=== PATIENT | male | born 1950 | race Caucasian/White ===

== ENCOUNTER → 2016-07-23 | Day surgery (SDC) | payer OTHER, MEDICARE ==
[2016-06-29 14:26] LABS: HEMATOCRIT 42.4 % (42-52); MEAN CELL VOLUME 91.6 fL (80-100); MEAN CORPUSCULAR HEMOGLOBIN 31.3 pg (25-34); MEAN CORPUSCULAR HGB CONC 34.2 g/dl (32-36); MEAN PLATELET VOLUME 10.4 fL (7.4-10.4); PLATELET COUNT 228 K/uL (130-400); RED BLOOD COUNT 4.63 M/uL (4.7-6.1); WHITE BLOOD COUNT 6.24 K/uL (4.8-10.8)
[2016-06-29 14:33] LABS: PROTHROMBIN TIME (PATIENT) 10.7 SECONDS (9.0-12.0)
[2016-06-29 14:36] LABS: BLOOD UREA NITROGEN 15 mg/dl (7-18); CARBON DIOXIDE 27 mmol/L (21-32); CHLORIDE 104 mmol/L (98-107); CREATININE 0.77 mg/dl (0.60-1.40); SODIUM 141 mmol/L (136-145)
[2016-07-09 13:53] VITALS: Ht 172.7 cm; Wt 69.1 kg
[~2016-07-23] VITALS: Ht 172.7 cm; Wt 69.1 kg
[~2016-07-23] MED LIST: ALBU1AER9 INH; ASCO-63 PO; ASPI81TA28 PO; ATROPINE SULFATE 0.1 MG/ML 5ML SYR IV PRN; B-COTAB18 PO; BUPIVACAINE 0.5 % 5 MG/1 ML MPF 30ML VIAL ONE; CALC-51 PO; CEFAZOLIN 1000MG/55 ML D5W IV SCH; DEXAMETHASONE SOD INJ 4 MG/ML VIAL ONE; EZET10TA41 PO; EpHEDrine SULFATE 50MG/5ML SYR ONE; FENTANYL CITRATE INJ 50 MCG/1 ML 2 ML VIAL IV PRN; FENTANYL CITRATE INJ 50 MCG/1 ML 2 ML VIAL ONE; FLAX100024 PO; GLYCOPYRROLATE INJ 0.2 MG/ML VIAL ONE; KETOROLAC TROMETHAMINE 15 MG/ML VIAL IV. PRN; LABETALOL HCL IV 5 MG/ML 20ML IV PRN; LACTATED RINGER'S 1000ML 1,000 ML IV SCH; LEVO100T PO; LIDOCAINE 2% 20 MG/ML 5ML SYR ONE; LIDOCAINE HCL 1% MPF 2 ML VIAL ONE; LIDOCAINE/EPINEPHRINE 1% INJ 50 ML VIAL ONE; LOSA1TAB PO; MIDAZOLAM HCL 1 MG/ML 2ML VIAL ONE; MoRPHine SULFATE 2 MG/ML CARP IV PRN; MoRPHine SULFATE 4 MG/ML 1 ML CARP\\VIAL IV PRN; NEOSTIGMINE METHYLSULFATE 5 MG/5 ML SYR ONE; NUTR1000 PO; ONDANSETRON INJ 2 MG/ML 2 ML VIAL IV PRN; ONDANSETRON INJ 2 MG/ML 2 ML VIAL ONE; OXYCODONE/ACETAMINOPHEN 5-325 TAB PO PRN; PROPOFOL IV EMULSION 10 MG/ML 20 ML VIAL IV ONE; ROPIVACAINE 0.5% 5 MG/ML 30 ML VIAL ONE; SELE200T2 PO; [UNRECOGNIZED DRUG - CODE] PO
--- NOTE | 2016-07-23 06:45 | History & Physical Bridge - [place] ---
H&P Re-Evaluation Bridge Note: I have examined the patient, reviewed the History & Physical and in the interval since the performance of the History & Physical I have noted the following changes of clinical significance: No changes noted
--- NOTE | 2016-07-23 09:38 | Discharge Instructions-SurgCtr ---
Discharge Instructions Visit Reason for Visit: Right Shoulder Rotator Cuff Teaer Discharge Discharge Diagnosis / Problem: Status post right Rotator Cuff Repair Discharge Goals Goal(s): Decrease discomfort, Improve function, Increase independence Medications Stopped Medications Name(s): ASA. STOPPED 9 DAYS AGO. Activity Recommendations Activity Limitations: per Instructions/Follow-up section Lifting Limitations: until after follow-up appointment Exercise/Sports Limitations: until after follow-up appointment May Resume Sexual Activity: when tolerated Shower/Bathe: may shower/bathe in 3 days Driving or Machine Use: no limitations Anesthesia . Post Anesthesia Instructions: If you have had General Anesthesia or IV Sedation: * Do not drive today. * Resume driving when surgeon permits. * Do not make important decisions or sign legal documents today. * Call surgeon for: 1. Temperature elevations greater than 101 degrees F. 2. Uncontrollable pain. 3. Excessive bleeding. 4. Persistent nausea and vomiting. 5. Medication intolerance (nausea, vomiting or rash). * For nausea and vomiting use only clear liquids such as: tea, soda, bouillon until nausea subsides, then gradually increase diet as tolerated. * If you have any concerns or questions, call your surgeon's office. If physician is unavailable and it is an emergency, call 911 or go to the nearest emergency room. . Instructions / Follow-Up Instructions / Follow-Up Dr. Liao in 10-15 days. PT in 2-3 days. Diet Recommendations Home Diet: resume previous diet Procedures Procedures Performed: Right Shoulder Arthroscopy, Biceps Tenodesis, Rotator Cuff Repair, Debridement, Exam Under Anesthesia Pending Studies Studies pending at discharge: no Medical Emergencies . Who to Call and When: Medical Emergencies: If at any time you feel your situation is an emergency, please call 911 immediately. . Non-Emergent Contact Non-Emergency issues call your: Surgeon Call Non-Emergent contact if: temperature is above 101.5, your pain is not controlled, wound has increased drainage, wound has increased redness . . "Provider Documentation" section prepared by Barrett Liao.
--- NOTE | 2016-07-23 09:45 | [facility] Operative Report ---
Operative Report Operative Date Jul 23, 2016. Pre-Operative Diagnosis Right shoulder rotator cuff tear Post-Operative Diagnosis Same + SLAP tear (type II), anterior and posterior labral fraying, Bursitis Procedure(s) Performed 1) Right Shoulder Arthroscopy Rotator Cuff Repair. 2) Arthroscopic Biceps Tenodesis. 3) Extensive Debridement. 4) Exam Under Anesthesia. Surgeon Dr. Liao Punch Machine Operator Surgeon(s) Dr. Trixie Farris & Porter Alarcon PA-C Estimated Blood Loss 4 mL Findings The Right shoulder was then examined under anesthesia and it exhibited: Forward flexion and abduction to 170; external rotation 100; internal rotation 80. There was no noted instability. Posterior and anterior translation was 1+ and they had no sulcus sign and was symmetric to their other side. The diagnostic arthroscopy commenced with the following findings: 1. The biceps anchor had a type II SLAP tear. 2. The anterior labrum showed a Megha complex with some fraying of the labrum at the 3:00 position, otherwise it was intact. 3. The inferior labrum was intact. 4. The inferior pouch showed no loose bodies. 5. The posterior labrum had fraying from the 7:[address] up to the superior aspect of the labrum, but it was well adhered to the glenoid. 6. The articular surface of the glenoid was normal. 7. The articular surface of humeral head was normal. 8. The long Head of the Biceps had some injection at the insertion on the superior labrum, but otherwise normal. 9. The Subscapularis tendon was normal. 10. The Supraspinatus tendon had a high-grade articular surface tear most anteriorly. After debriding the frayed aspect, there was a small full- thickness tear in the remaining attachment anteriorly was less than 10%. 11. The Infraspinatus and Teres Minor were intact. 12. The Subacromial space showed bursitis, no bony spur. Fluids (cc crystalloids) 1600 Specimens None Drains n/a Anesthesia GET + interscalene Nerve block Complication(s) None Disposition Recovery Room / PACU (Stable) Implants 1) 5.5 mm SwiveLock (Arthrex), Medial row. 2) 4.75 mm SwiveLock (Arthrex), Lateral row. 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 They have MRI and clinical findings suggestive of right supraspinatus rotator cuff tear and labral tears. After a lengthy discussion regarding their options of conservative versus operative management, they have elected to proceed with surgery. The risks of surgery were discussed and include but not limited to: Infection, bleeding, nerve damage, continued pain, progression of arthritis, stiffness, decreased level of activity, and deep vein thrombosis. The patient understood all of their options and the risks of surgery and would like to proceed. The informed consent was signed. Description of Procedure The patient was taken to the operating room and following administration of her interscalene nerve block and general anesthetic, a multidisciplinary time-out was performed identifying my initials on the right shoulder as the correct and operative limb. The patient was then placed in beach chair position with all of their bony prominences well-padded. They were then prepped and draped in the usual orthopedic sterile fashion. All of the bony landmarks were marked as well as the planned incisions. The planned incisions were injected with a 50:50 mixture of 0.5% Marcaine plain and 1% Lidocaine with Epinephrine for a total of 8 cc. Then using a spinal needle which was placed intra-articularly into the glenohumeral joint and insufflated to 35 cc and there was noted appropriate back flow, an additional 15 cc were placed. The standard posterior portal was made with an 11-blade. Trocar was introduced into the glenohumeral joint in the standard fashion. Using a spinal needle, the anterior portal was placed lateral to the coracoid under direct visualization between the Long Head of the Biceps and Subscapularis. A 7mm cannula was then placed. The intra-articular portion of shoulder was addressed first with debriding any fraying from the labrum (superiorly, anteriorly, and posteriorly) and the supraspinatus articular sided tear. The labrum was probed and found to be intact. After debriding the frayed articular sided supraspinatus tear, there is a small portion of full-thickness tear in the remaining anterior fibers were less than 10%. The arthroscope had also been removed from the posterior portal and placed anteriorly for better posterior visualization. Additional debridement of the posterior labrum was also performed again back to a stable rim. Due to the type II SLAP tear, it was felt best to perform a biceps tenodesis. A Sanjuanita cannula was placed through the subacromial space and the rotator cuff tear to allow the placement of a FiberLink through the long head of the biceps. The biceps was then released with a basket forceps. The released long head of the biceps portion from the superior labrum was further debrided with mechanical shaver. The arthroscope was then placed subacromially. There was bursitis noted. Once the bursitis was removed, the bursal side of the rotator cuff was visualized and a small crescent-shaped tear of the supraspinatus was noted. The footprint of the rotator cuff was prepared with a small bur creating a bleeding surface to allow for healing of the long head biceps and supraspinatus. A 5.5 mm SwiveLock was placed for the medial row, with the FiberLink from the biceps incorporated with care to ensure proper tensioning of the long head of the biceps. The FiberTapes were passed through the most anterior and posterior aspect of the supraspinatus separately, to be incorporated into the lateral row. The FiberWire were also passed in a horizontal fashion more centrally and medially to the FiberTapes. The FiberTapes were were placed in the lateral row anchor ( 4.75 mm Swivelock) in the standard fashion, with the arm slightly abducted. The FiberWires were passed out the lateral portal and tied together using a non- sliding arthroscopic knot, securing to the medial anchor, with alternating half hitch was performed to complete the repair, in the standard fashion. The humeral head was no longer visible. All of the instruments were removed. The portal sites were closed with 3-0 Prolene in a standard fashion. Xeroform was placed overtop followed by 4 x 4's, ABDs, and foam tape. The patient was placed in a sling. The sponge and needle counts were correct. POSTOPERATIVE INSTRUCTIONS: The patient will follow-up with physical therapy in two days. The patient will wear the abduction sling for 4 weeks. The patient will follow-up with me in 10 to 15 days. I attest to the content of the Intraoperative Record and any orders documented therein. Any exceptions are noted below.
--- NOTE | 2016-07-23 10:08 | [facility] Operative Report ---
Operative Report Operative Date Jul 23, 2016. Pre-Operative Diagnosis Right shoulder rotator cuff tear Post-Operative Diagnosis Same + SLAP tear (type II), anterior and posterior labral fraying, Bursitis Procedure(s) Performed 1) Right Shoulder Arthroscopy Rotator Cuff Repair. 2) Arthroscopic Biceps Tenodesis. 3) Extensive Debridement. 4) Exam Under Anesthesia. Surgeon Dr. Liao Stone Sawyer Surgeon(s) Dr. Trixie Farris & Porter Alarcno PA-C Estimated Blood Loss 4 mL Findings SAME Fluids (cc crystalloids) 1600 Specimens None Drains NONE Anesthesia general, block Complication(s) None Disposition Recovery Room / PACU Implants see Dr Liao's note Indications continued right shoulder pain, MRI obtained, surgery recommended, consents signed Description of Procedure taken to the OR, prepped and draped, I was present the entire case, please see Dr. Liao's note for further detail I attest to the content of the Intraoperative Record and any orders documented therein. Any exceptions are noted below.
[2016-07-23 10:56] VITALS: TEMP 36.3
--- NOTE | 2016-07-23 11:00 | Anesthesia Progress Nt - [facility] ---
Anesthesia Post Op Note Date & Time Jul 23, 2016 at 11:00 Vital Signs Pain Intensity: 0 Vital Signs Past 12 Hours Date Time Temp Pulse Resp B/P Pulse Ox O2 Delivery O2 Flow Rate FiO2 07/23/16 10:46 59 15 07/23/16 10:46 60 15 94 07/23/16 10:43 36.5 64 16 136/73 95 Room Air 07/23/16 10:43 136/73 07/23/16 10:41 61 17 07/23/16 10:41 65 17 95 07/23/16 10:38 143/72 07/23/16 10:36 65 20 100 07/23/16 10:36 65 20 07/23/16 10:33 141/70 07/23/16 10:31 54 14 07/23/16 10:31 54 14 100 07/23/16 10:28 142/72 07/23/16 10:26 66 23 07/23/16 10:26 65 23 100 07/23/16 10:23 141/70 07/23/16 10:21 64 16 99 07/23/16 10:21 64 16 07/23/16 10:18 140/72 07/23/16 10:16 66 20 94 07/23/16 10:16 66 20 07/23/16 10:13 149/76 07/23/16 10:11 70 15 07/23/16 10:11 69 15 97 07/23/16 10:08 138/79 07/23/16 10:06 68 17 99 07/23/16 10:06 68 17 07/23/16 10:03 151/78 07/23/16 10:01 74 17 07/23/16 10:01 74 17 99 07/23/16 09:58 144/73 07/23/16 09:56 72 15 07/23/16 09:56 73 15 100 07/23/16 09:54 143/94 07/23/16 09:51 74 16 100 07/23/16 09:51 73 16 07/23/16 09:48 36.2 78 14 156/80 97 Diffusion Mask 6 07/23/16 09:48 151/79 07/23/16 09:46 156/80 07/23/16 06:56 54 30 97 07/23/16 06:56 54 07/23/16 06:55 54 13 98 2/13/17 06:55 55 07/23/16 06:53 146/83 07/23/16 06:50 56 07/23/16 06:50 56 14 99 07/23/16 06:49 53 16 159/97 97 Mask 3 07/23/16 06:48 170/91 07/23/16 06:47 159/97 07/23/16 06:45 62 0 95 07/23/16 06:45 63 07/23/16 06:36 37.2 55 16 161/89 97 Room Air Notes Mental Status: alert / awake / arousable, participated in evaluation Pt Amnestic to Procedure: Yes Nausea / Vomiting: adequately controlled Pain: adequately controlled Airway Patency, RR, SpO2: stable & adequate BP & HR: stable & adequate Hydration State: stable & adequate Anesthetic Complications: no major complications apparent
[2016-07-23 13:14] VITALS: BP 120/76; PULSE 59; O2SAT 96
== END | disposition home or self-care (01) ==
LOC: X.SURG 06:17
PROVIDERS: ATTEND Orthopaedic Surgery Sports Medicine
DX: M75.101 Unspecified rotator cuff tear or rupture of right shoulder, not specified as traumatic (principal); M75.50 Bursitis of unspecified shoulder; I10 Essential (primary) hypertension; E78.5 Hyperlipidemia, unspecified; Z79.82 Long term (current) use of aspirin

== ENCOUNTER → 2016-08-10 | Outpatient (CLI) | payer OTHER, MEDICARE ==
[~2016-08-10] MED LIST changes: -ATROPINE SULFATE 0.1 MG/ML 5ML SYR IV PRN; -BUPIVACAINE 0.5 % 5 MG/1 ML MPF 30ML VIAL ONE; -CEFAZOLIN 1000MG/55 ML D5W IV SCH; -DEXAMETHASONE SOD INJ 4 MG/ML VIAL ONE; -EpHEDrine SULFATE 50MG/5ML SYR ONE; -FENTANYL CITRATE INJ 50 MCG/1 ML 2 ML VIAL IV PRN; -FENTANYL CITRATE INJ 50 MCG/1 ML 2 ML VIAL ONE; -GLYCOPYRROLATE INJ 0.2 MG/ML VIAL ONE; -KETOROLAC TROMETHAMINE 15 MG/ML VIAL IV. PRN; -LABETALOL HCL IV 5 MG/ML 20ML IV PRN; -LACTATED RINGER'S 1000ML 1,000 ML IV SCH; -LIDOCAINE 2% 20 MG/ML 5ML SYR ONE; -LIDOCAINE HCL 1% MPF 2 ML VIAL ONE; -LIDOCAINE/EPINEPHRINE 1% INJ 50 ML VIAL ONE; -MIDAZOLAM HCL 1 MG/ML 2ML VIAL ONE; -MoRPHine SULFATE 2 MG/ML CARP IV PRN; -MoRPHine SULFATE 4 MG/ML 1 ML CARP\\VIAL IV PRN; -NEOSTIGMINE METHYLSULFATE 5 MG/5 ML SYR ONE; -ONDANSETRON INJ 2 MG/ML 2 ML VIAL IV PRN; -ONDANSETRON INJ 2 MG/ML 2 ML VIAL ONE; -OXYCODONE/ACETAMINOPHEN 5-325 TAB PO PRN; -PROPOFOL IV EMULSION 10 MG/ML 20 ML VIAL IV ONE; -ROPIVACAINE 0.5% 5 MG/ML 30 ML VIAL ONE
[2016-08-10 09:55] LABS: ALT/SGPT 29 U/L (12-78); AST/SGOT 15 U/L (15-37); BLOOD UREA NITROGEN 15 mg/dl (7-18); BUN/CREATININE RATIO 19.3 (10-20); CALCIUM 8.8 mg/dl (8.5-10.1); CARBON DIOXIDE 30 mmol/L (21-32); CHLORIDE 109 mmol/L (98-107); CREATININE 0.79 mg/dl (0.60-1.40); GLUCOSE 101 mg/dl (70-99); POTASSIUM 3.9 mmol/L (3.5-5.1); SODIUM 145 mmol/L (136-145)
[2016-08-10 10:05] LABS: ALB/GLOB RATIO 1.3 (0.9-2); ALKALINE PHOSPHATASE 53 U/L (45-117); CHOLESTEROL 131 mg/dl (0-200); CHOLESTEROL/HDL RATIO 3.2; HDL CHOLESTEROL 41 mg/dl; LDL CHOLESTEROL CALCULATED 81 mg/dl; TRIGLYCERIDES 47 mg/dl (0-150); VERY LOW DENSITY LIPOPROT CALC 9 mg/dl
== END | disposition home or self-care (01) ==
LOC: C.LAB1850 07:25
PROVIDERS: ATTEND Family Medicine
DX: E78.01 Familial hypercholesterolemia (principal); J45.909 Unspecified asthma, uncomplicated; I10 Essential (primary) hypertension

== ENCOUNTER → 2016-09-24 | Outpatient (CLI) | payer OTHER, MEDICARE ==
[~2016-09-24] MED LIST changes: +PLV75 PO
== END | disposition home or self-care (01) ==
LOC: C.LAB1850 07:36
PROVIDERS: ATTEND Family Medicine
DX: Z51.81 Encounter for therapeutic drug level monitoring (principal); Z79.899 Other long term (current) drug therapy

== ENCOUNTER → 2017-02-25 | Outpatient (CLI) | payer OTHER, MEDICARE ==
[~2017-02-25] MED LIST changes: -PLV75 PO
[2017-02-25 10:48] LABS: ALT/SGPT 28 U/L (12-78); AST/SGOT 19 U/L (15-37); BLOOD UREA NITROGEN 15 mg/dl (7-18); BUN/CREATININE RATIO 16.8 (10-20); CALCIUM 8.8 mg/dl (8.5-10.1); CARBON DIOXIDE 29 mmol/L (21-32); CHLORIDE 108 mmol/L (98-107); CREATININE 0.91 mg/dl (0.60-1.40); GLUCOSE 96 mg/dl (70-99); POTASSIUM 4.4 mmol/L (3.5-5.1); SODIUM 142 mmol/L (136-145)
[2017-02-25 10:59] LABS: ALB/GLOB RATIO 1.3 (0.9-2); ALKALINE PHOSPHATASE 45 U/L (45-117); CHOLESTEROL 107 mg/dl (0-200); CHOLESTEROL/HDL RATIO 2.5; HDL CHOLESTEROL 42 mg/dl; LDL CHOLESTEROL CALCULATED 48 mg/dl; TRIGLYCERIDES 83 mg/dl (0-150); VERY LOW DENSITY LIPOPROT CALC 17 mg/dl
== END | disposition home or self-care (01) ==
LOC: C.LAB1850 07:41
PROVIDERS: ATTEND Family Medicine
DX: E03.9 Hypothyroidism, unspecified (principal); E78.01 Familial hypercholesterolemia; I10 Essential (primary) hypertension; Z11.59 Encounter for screening for other viral diseases

== ENCOUNTER → 2017-08-29 | Outpatient (CLI) | payer OTHER, MEDICARE ==
[~2017-08-29] MED LIST changes: -ALBU1AER9 INH; -ASPI81TA28 PO; +PLV75 PO
[2017-08-29 09:51] LABS: ALT/SGPT 28 U/L (12-78); BLOOD UREA NITROGEN 16 mg/dl (7-18); CALCIUM 8.9 mg/dl (8.5-10.1); CARBON DIOXIDE 31 mmol/L (21-32); CHOLESTEROL 108 mg/dl (0-200); GLUCOSE 96 mg/dl (70-99); POTASSIUM 4.1 mmol/L (3.5-5.1); SODIUM 140 mmol/L (136-145)
[2017-08-29 10:03] LABS: LDL CHOLESTEROL CALCULATED 61 mg/dl
== END | disposition home or self-care (01) ==
LOC: C.LAB1850 07:41
PROVIDERS: ATTEND Family Medicine
DX: E03.9 Hypothyroidism, unspecified (principal); E78.01 Familial hypercholesterolemia; I10 Essential (primary) hypertension